=== PATIENT | male | born 1960 | race Caucasian/White ===

== ENCOUNTER 2019-05-22 21:49 | Emergency (ER) | payer OTHER ==
[~2019-05-22] VITALS: Ht 180.3 cm; Wt 101.2 kg
--- NOTE | 2019-05-22 22:45 | NUR ---
Rey meneses in [facility] - 05/22/19 at 2312 by [email or web address] PATIENT WAS CALLED. NOT PRESENT IN WAITING ROOM.
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
[2019-05-22] MEDS ORDERED: predniSONE 20 MG TABLET PO ONE (23:30)
[2019-05-22] MEDS ORDERED: HYDROMORPHONE 1 MG/1 ML DISP.SYRIN IM ONE (23:30)
[2019-05-22] MEDS ORDERED: ONDANSETRON ODT 4 MG TAB.RAPDIS SL ONE (23:30)
[2019-05-22] MEDS ORDERED: ONDANSETRON ODT 4 MG TAB.RAPDIS ONE (23:35)
[2019-05-22] MEDS ORDERED: HYDROMORPHONE 1 MG/1 ML DISP.SYRIN ONE (23:35)
[2019-05-22] MEDS ORDERED: predniSONE 20 MG TABLET ONE (23:36)
--- NOTE | 2019-05-22 23:59 | NUR ---
Patient discharged to home in stable conditon. Written and verbal after care instructions given. Patient verbalizes understanding of instructions. Pt ambulated out of ER in stable gait. No acute distres noted. Pt's to drive him home.
[2019-05-23] VITALS: BP 154/91
== END 2019-05-23 00:01 | disposition home or self-care (01) ==
LOC: ER 21:58
DX: S13.4XXA Sprain of ligaments of cervical spine, initial encounter (principal); M54.5 Low back pain; E78.5 Hyperlipidemia, unspecified; V49.9XXA Car occupant (driver) (passenger) injured in unspecified traffic accident, initial encounter; Y93.89 Activity, other specified; Y92.89 Other specified places as the place of occurrence of the external cause; Y99.8 Other external cause status
CPT/HCPCS: 96372; 99283; J1170; J7512; A4663; Q0162